=== PATIENT | female | born 1995 | race African-American/Black ===

== ENCOUNTER 2017-06-03 21:18 | Emergency (ER) | payer MEDICAID ==
[~2017-06-03] VITALS: Ht 165.1 cm; Wt 55.0 kg
[2017-06-04] MEDS ORDERED: IBUPROFEN 600MG TABLET PO ONE (05:30)
[2017-06-04] MEDS ORDERED: CYCLOBENZAPRINE 10MG TABLET PO ONE (05:30)
[2017-06-04 06:01] VITALS: BP 115/66
== END 2017-06-04 06:33 | disposition home or self-care (01) ==
LOC: ER 23:55
DX: S13.9XXA Sprain of joints and ligaments of unspecified parts of neck, initial encounter (principal); S63.591A Other specified sprain of right wrist, initial encounter; S00.83XA Contusion of other part of head, initial encounter; V89.2XXA Person injured in unspecified motor-vehicle accident, traffic, initial encounter; Y93.89 Activity, other specified; Y99.8 Other external cause status; Y92.410 Unspecified street and highway as the place of occurrence of the external cause
CPT/HCPCS: 73110; 81025; 99284

== ENCOUNTER 2024-01-10 07:58 | Emergency (ER) | payer MEDICAID ==
[~2024-01-10] VITALS: Ht 165.1 cm; Wt 69.3 kg
[2024-01-10 08:04] VITALS: BP 110/70; PULSE 104; RESP 16; TEMP 98.1; O2SAT 100
[2024-01-10] MEDS ORDERED: SULF1TAB48 MT (09:11)
== END 2024-01-10 09:50 | disposition home or self-care (01) ==
LOC: ER 07:58
DX: L73.9 Follicular disorder, unspecified (principal)
CPT/HCPCS: 99283